=== PATIENT | male | born 1935 | race Caucasian/White ===

== ENCOUNTER 2020-12-18 00:23 | Emergency (ER) | payer MEDICARE ==
[~2020-12-18] VITALS: Ht 180.3 cm; Wt 113.4 kg
[2020-12-18 01:57] LABS: BASO % 0.1 % (0.0-1.0); EOS % 0.1 % (1.0-4.0); HEMATOCRIT 29.9 % (42.0-52.0); LYMPH # 0.5 10*3/uL (1.3-4.4); LYMPH % 3.4 % (27.0-41.0); MEAN CORPUSCULAR HGB CONC 30.4 g/dl (33.0-37.0); MEAN PLATELET VOLUME 12.9 fl (9.6-12.3); MONO # 1.2 10*3/uL (0.1-1.0); MONO % 8.8 % (3.0-9.0); NEUT # 11.5 10*3/uL (2.3-7.9); NEUT % 85.8 % (47.0-73.0); PLATELET COUNT AUTOMATED 185 10*3/uL (130-400); RED BLOOD COUNT 3.25 10*6/uL (4.50-5.90); RED CELL DISTRI WIDTH 16.3 % (0-14.5); WHITE BLOOD COUNT 13.3 10*3/uL (4.8-10.8)
[2020-12-18 02:17] LABS: ALBUMIN 2.3 gm/dl (3.1-4.5); ALKALINE PHOSPHATASE 148 U/L (45-117); BUN 22 mg/dl (7-24); CHLORIDE 106 mmol/L (98-107); CREATININE 1.04 mg/dL (0.70-1.30); POTASSIUM 4.1 mmol/L (3.5-5.1); SGOT/AST 35 IU/L (3-35); SGPT/ALT 35 U/L (12-78); SODIUM 138 mmol/L (136-145); TOTAL PROTEIN 6.7 gm/dL (6.4-8.2)
[2020-12-18 05:48] LABS: BILIRUBIN 1+ (Negative); BLOOD 3+ (Negative); CLARITY Clear (Clear); COLOR Dark Yellow (Yellow); GLUCOSE Negative (Negative); KETONE Trace (Negative); LEUKO ESTERASE Trace (Negative); NITRITE Negative (Negative)
[2020-12-18 06:04] LABS: MUCOUS TRACE; RBC TNTC rbc/hpf (0-2)
[2020-12-18 07:23] LABS: INTERNATIONAL NORM RATIO 3.4 (2.0-3.5)
[2020-12-18] MEDS ORDERED: AUGMENTIN 875875 MG PO (07:32)
== END 2020-12-18 07:53 | disposition home or self-care (01) ==
LOC: ED 00:23
PROVIDERS: Emergency Medicine
DX: J18.9 Pneumonia, unspecified organism (principal); Z88.2 Allergy status to sulfonamides

== ENCOUNTER 2021-01-13 12:05 | Emergency (ER) | payer MEDICARE ==
[~2021-01-13 12:05] MED LIST: AUGMENTIN 875875 MG PO
[2021-01-13 12:34] LABS: HEMATOCRIT 33.1 % (42.0-52.0); MEAN CELL VOLUME 94.6 fl (80.0-94.0); MEAN CORPUSCULAR HGB 28.6 pg (27.0-31.0); MEAN CORPUSCULAR HGB CONC 30.2 g/dl (33.0-37.0); MEAN PLATELET VOLUME 11.5 fl (9.6-12.3); PLATELET COUNT AUTOMATED 114 10*3/uL (130-400); WHITE BLOOD COUNT 3.9 10*3/uL (4.8-10.8)
[2021-01-13 12:45] LABS: ALBUMIN 3.3 gm/dl (3.1-4.5); ALKALINE PHOSPHATASE 143 U/L (45-117); BUN 11 mg/dl (7-24); CHLORIDE 105 mmol/L (98-107); CREATININE 1.02 mg/dL (0.70-1.30); POTASSIUM 3.5 mmol/L (3.5-5.1); SGOT/AST 28 IU/L (3-35); SGPT/ALT 20 U/L (12-78); SODIUM 142 mmol/L (136-145)
[2021-01-13 12:46] LABS: ATYPICAL LYMPHS 1 % (0-0); PLATELET SUFFICIENCY LOW (NORMAL); POLYCHROMASIA SLIGHT; TOTAL CELLS COUNTED 100 #CELLS
[2021-01-13 12:51] LABS: ACT PARTIAL THROMBO TIME 72.6 SECONDS (20.0-32.1); INTERNATIONAL NORM RATIO > 9.3 (2.0-3.5)
[2021-01-13 13:28] LABS: TROPONIN I < 0.015 ng/ml (<0.045)
== END 2021-01-13 18:00 | disposition home or self-care (01) ==
LOC: ED 12:05
PROVIDERS: Emergency Medicine
DX: R79.1 Abnormal coagulation profile (principal); D64.9 Anemia, unspecified; E11.649 Type 2 diabetes mellitus with hypoglycemia without coma